=== PATIENT | female | born 1990 | race Caucasian/White ===

== ENCOUNTER 2016-10-13 03:38 | Inpatient (IN) | payer OTHER ==
[~2016-10-13] VITALS: Ht 177.8 cm; Wt 209.5 kg
[~2016-10-13 03:38] MED LIST: BACTRIM,SEPT1 TABLET PO; CARAFATE100 MG/ML PO; INDOCIN25 MG PO; PERCOCET 7.51 TABLET PO; RANITIDINE HCL150 M1 PO; SYNTHROID25 MCG PO; VALIUM5 MG PO
[2016-10-13 05:12] LABS: CHLORIDE 104 mEq/L (99-109); POTASSIUM 4.1 mEq/L (3.7-5.4); SODIUM 142 mEq/L (136-147)
[2016-10-13 05:14] LABS: GLUCOSE 317 mg/dL (70-99)
[2016-10-13 05:16] LABS: ANION GAP 11 MEQ/L (2-14); TOTAL BILIRUBIN 0.6 mg/dL (0.0-1.0)
[2016-10-13 05:18] LABS: ALKALINE PHOSPHATASE 98 IU/L (3-129); GFR ESTIMATE (CALCULATED) > 59 mL/min/
[2016-10-13 05:19] LABS: UREA NITROGEN (BUN) 7 mg/dL (9-23)
[2016-10-13 05:19] LABS: D-DIMER ELISA < 150.00 ng/mLDDU (<230)
[2016-10-13 05:20] LABS: TROP-I INTERPRETATION NEGATIVE; TROPONIN-I < 0.01 ng/mL (0.0-0.30)
[2016-10-13 05:24] LABS: BASOPHIL COUNT 0.1 K/uL (0-0.1); EOSINOPHIL (%) 1.8 % (0-5); EOSINOPHIL COUNT 0.2 K/uL (0-0.3); HEMATOCRIT 39.9 % (36.0-46.0); IMMATURE GRANULOCYTE (%) 1.7 % (0.0-0.7); IMMATURE GRANULOCYTE COUNT 0.2 K/uL; INSTRUMENT ABS NEUTROPHIL CT 6.8 K/uL; LYMPHOCYTE COUNT 1.5 K/uL (1.0-2.8); MCH 24.8 PG (29.0-34.0); MCHC 31.1 G/DL (30.0-36.0); MCV 79.8 FL (83-99); MONOCYTE (%) 8.2 % (3-12); MONOCYTE COUNT 0.8 K/uL (0-0.8); NEUTROPHIL (%) 72.2 % (45-76); NEUTROPHIL COUNT 6.8 K/uL (1.8-6.4); RBC DIS.WIDTH-CV 14.3 % (11.8-14.6); RBC DIS.WIDTH-SD 40.9 % (39-53); WHITE BLOOD COUNT 9.5 K/uL (4.1-10.2)
[2016-10-13 05:27] LABS: QUANTITATIVE HCG < 4.0 MIU/ML
[2016-10-13 06:00] LABS: ADD MIUA? YES; BILIRUBIN NEGATIVE; BLOOD NEGATIVE; COLOR YELLOW ((YELLOW)); GLUCOSE (STRIP) >=500; KETONES 5; LEUKOCYTES TRACE; NITRITE NEGATIVE; PROTEIN (STRIP) NEGATIVE; SPECIFIC GRAVITY 1.023 (1.000-1.030)
[2016-10-13 06:09] LABS: BACTERIA RARE /HPF; BUDDING YEAST 1+; EPITHELIAL CELLS 3+ /HPF; MUCUS TRACE /LPF; UCUL ADDED? NO; WHITE BLOOD CELLS 0-5 /HPF (0-5)
[2016-10-13 06:42] LABS: PLAT.SUFFICIENCY ADEQUATE; PLATELET CLUMPS PRESENT - PLATELET COUNT APPEARS ADQ.; PLATELET COUNT UNABLE TO REPORT K/uL (156-360)
[2016-10-13] MEDS ORDERED: OXYMORPHONE HCL30 MG PO (07:49)
[2016-10-13] MEDS ORDERED: METFORMIN HCL500 MG PO (07:55)
[2016-10-13] MEDS ORDERED: GLIPIZIDE5 MG PO (07:55)
[2016-10-13] MEDS ORDERED: TYLENOL EXTRA500 MG PO (07:56)
[2016-10-13] MEDS ORDERED: MOTRIN800 MG PO (07:56)
[2016-10-13] MEDS ORDERED: OPANA IR10 MG PO (07:57)
[2016-10-13] MEDS ORDERED: PRILOSEC20 MG PO (07:58)
[2016-10-13] MEDS ORDERED: GABAPENTIN600 MG PO (08:42)
[2016-10-13] MEDS ORDERED: PROAIR HFA8.5 GM IH (08:42)
[2016-10-13] MEDS ORDERED: KLONOPIN0.5 M1 PO (08:43)
[2016-10-13 12:31] LABS: POINT-OF-CARE METER ID UU13113725
[2016-10-13 12:39] VITALS: BP 133/89
[2016-10-13 13:26] LABS: TROP-I INTERPRETATION NEGATIVE; TROPONIN-I < 0.01 ng/mL (0.0-0.30)
[2016-10-13 16:19] VITALS: BP 112/59
[2016-10-13 16:41] LABS: POINT-OF-CARE METER ID UU13113725
[2016-10-13 21:08] LABS: POINT-OF-CARE METER ID UU13113725
[2016-10-13 21:33] LABS: TROP-I INTERPRETATION NEGATIVE; TROPONIN-I < 0.01 ng/mL (0.0-0.30)
[2016-10-13 22:54] VITALS: BP 131/58
[2016-10-14] VITALS (7 sets, daily range): BP systolic 116–144; BP diastolic 59–89
[2016-10-14 06:03] LABS: MCH 25.3 PG (29.0-34.0); MCHC 30.6 G/DL (30.0-36.0); MCV 82.8 FL (83-99); MEAN PLAT.VOLUME 10.2 uM^3 (9.5-12.4); PLATELET COUNT 233 K/uL (156-360); RBC DIS.WIDTH-CV 14.5 % (11.8-14.6); RBC DIS.WIDTH-SD 43.8 % (39-53); RED BLOOD COUNT 4.35 M/uL (3.80-5.20); WHITE BLOOD COUNT 6.8 K/uL (4.1-10.2)
[2016-10-14 06:05] LABS: POINT-OF-CARE METER ID UU13113725
[2016-10-14 06:25] LABS: ANION GAP 9 MEQ/L (2-14); CHLORIDE 106 MEQ/L (99-109); GFR ESTIMATE (CALCULATED) > 59 mL/min/; SAMPLE HEMOLYSIS CHECK 0; SAMPLE ICTERIC CHECK 0; SAMPLE LIPEMIA CHECK 0; SODIUM 143 MEQ/L (136-147); UREA NITROGEN (BUN) 4 mg/dL (9-23)
[2016-10-14 06:40] LABS: GLUCOSE 152 mg/dL (70-99)
[2016-10-14 11:46] LABS: POINT-OF-CARE METER ID UU13113725
[2016-10-14 16:59] LABS: POINT-OF-CARE METER ID UU13113725
[2016-10-14 21:22] LABS: POINT-OF-CARE METER ID UU13113725
[2016-10-15 03:05] VITALS: BP 118/57
[2016-10-15 05:52] LABS: POINT-OF-CARE METER ID UU13113725
[2016-10-15 08:21] VITALS: BP 121/59
[2016-10-15 10:16] LABS: MCH 24.2 PG (29.0-34.0); MCHC 29.5 G/DL (30.0-36.0); MCV 82.1 FL (83-99); MEAN PLAT.VOLUME 9.9 uM^3 (9.5-12.4); PLATELET COUNT 257 K/uL (156-360); RBC DIS.WIDTH-CV 14.5 % (11.8-14.6); RBC DIS.WIDTH-SD 42.9 % (39-53); RED BLOOD COUNT 4.63 M/uL (3.80-5.20); WHITE BLOOD COUNT 4.9 K/uL (4.1-10.2)
[2016-10-15 10:51] LABS: ANION GAP 8 MEQ/L (2-14); CHLORIDE 103 MEQ/L (99-109); GFR ESTIMATE (CALCULATED) > 59 mL/min/; GLUCOSE 229 mg/dL (70-99); POTASSIUM 4.4 MEQ/L (3.7-5.4); SAMPLE HEMOLYSIS CHECK 0; SAMPLE ICTERIC CHECK 0; SAMPLE LIPEMIA CHECK 0; SODIUM 141 MEQ/L (136-147); UREA NITROGEN (BUN) 3 mg/dL (9-23)
[2016-10-15 11:00] VITALS: BP 121/57
[2016-10-15 11:56] LABS: POINT-OF-CARE METER ID UU13113725
[2016-10-15 15:00] VITALS: BP 119/55
[2016-10-15 19:28] VITALS: BP 172/81
[2016-10-15 22:23] LABS: POINT-OF-CARE METER ID UU13113725
[2016-10-16 00:23] VITALS: BP 168/72
[2016-10-16 06:19] LABS: POINT-OF-CARE METER ID UU13113725
[2016-10-16 06:35] LABS: HEMATOCRIT 33.8 % (36.0-46.0); MCH 25.7 PG (29.0-34.0); MCHC 31.1 G/DL (30.0-36.0); MCV 82.6 FL (83-99); MEAN PLAT.VOLUME 9.9 uM^3 (9.5-12.4); PLATELET COUNT 215 K/uL (156-360); RBC DIS.WIDTH-CV 14.6 % (11.8-14.6); RBC DIS.WIDTH-SD 43.7 % (39-53); RED BLOOD COUNT 4.09 M/uL (3.80-5.20); WHITE BLOOD COUNT 5.1 K/uL (4.1-10.2)
[2016-10-16 06:54] LABS: ANION GAP 10 MEQ/L (2-14); CHLORIDE 105 MEQ/L (99-109); GFR ESTIMATE (CALCULATED) > 59 mL/min/; GLUCOSE 186 mg/dL (70-99); POTASSIUM 3.8 MEQ/L (3.7-5.4); SAMPLE HEMOLYSIS CHECK 0; SAMPLE ICTERIC CHECK 0; SAMPLE LIPEMIA CHECK 0; SODIUM 142 MEQ/L (136-147); UREA NITROGEN (BUN) 3 mg/dL (9-23)
[2016-10-16 07:10] LABS: Estimated Average Glucose 220 mg/dL (70-123); HEMOGLOBIN A1c (GLYCOHEMOGLOB) 9.3 % HGB (Below 5.7)
[2016-10-16 08:52] VITALS: BP 113/55
[2016-10-16 11:15] VITALS: BP 141/96
[2016-10-16 11:24] LABS: POINT-OF-CARE METER ID UU13113725
[2016-10-16] MEDS ORDERED: MUCINEX600 MG PO (11:31)
[2016-10-16] MEDS ORDERED: CEFDINIR300 MG PO (11:31)
[2016-10-16] MEDS ORDERED: METOPROLOL SUCC25 MG PO (11:33)
[2016-10-16] MEDS ORDERED: METOPROLOL SUCC50 MG PO (11:35)
== END 2016-10-16 14:15 | disposition home or self-care (01) | DRG 194 ==
LOC: EME 03:38 → 5EAST 07:51 → EDOF 07:51 → CANRESERV 07:52 → ENRESERV 07:52 → EDOF 08:52 → ENRESERV 09:03 → 5EAST 09:32 → ENPENDDIS 10-16 → 5EAST 10-16 14:15
PROVIDERS: Emergency Medicine; Internal Medicine; Physician Assistant
DX: J18.9 Pneumonia, unspecified organism (principal); Z68.44 Body mass index [BMI] 60.0-69.9, adult; J45.990 Exercise induced bronchospasm; E03.9 Hypothyroidism, unspecified; E11.9 Type 2 diabetes mellitus without complications; G89.29 Other chronic pain; I10 Essential (primary) hypertension; R00.0 Tachycardia, unspecified; Z74.09 Other reduced mobility; K59.00 Constipation, unspecified; M54.9 Dorsalgia, unspecified; E66.01 Morbid (severe) obesity due to excess calories; Z88.5 Allergy status to narcotic agent; Z79.84 Long term (current) use of oral hypoglycemic drugs
CPT/HCPCS: 36415; 71020; 71250; 80048; 80053; 81003; 82948; 83036; 83605; 84484; 84702; 85025; 85025 91; 85027; 85379; 85613 90; 85730 GA; 87040; 87070; 87205; 93005; 94640; 94640 76; 99202; 99281; 99285; J0456; J0692; J0696; J1650; J1815; J2405; J7030; J7050

== ENCOUNTER → 2016-12-23 | Outpatient (CLI) | payer OTHER ==
[~2016-12-23] MED LIST changes: +CEFDINIR300 MG PO; +GABAPENTIN600 MG PO; +GLIPIZIDE5 MG PO; +KLONOPIN0.5 M1 PO; +METFORMIN HCL500 MG PO; +METOPROLOL SUCC25 MG PO; +METOPROLOL SUCC50 MG PO; +MOTRIN800 MG PO; +MUCINEX600 MG PO; +OPANA IR10 MG PO; +OXYMORPHONE HCL30 MG PO; +PRILOSEC20 MG PO; +PROAIR HFA8.5 GM IH; +TYLENOL EXTRA500 MG PO
== END | disposition home or self-care (01) ==
LOC: RAD 14:54
DX: K52.9 Noninfective gastroenteritis and colitis, unspecified (principal); K59.1 Functional diarrhea; R10.32 Left lower quadrant pain; R11.0 Nausea
CPT/HCPCS: 74177

== ENCOUNTER → 2017-05-22 | Outpatient (CLI) | payer OTHER | END | disposition home or self-care (01) | LOC: NUC 07:18 | DX: K21.9 Gastro-esophageal reflux disease without esophagitis (principal) | CPT/HCPCS: 78227; A9537; J2805 ==

== ENCOUNTER 2017-06-07 16:25 | Emergency (ER) | payer OTHER ==
[~2017-06-07] VITALS: Ht 177.8 cm; Wt 204.5 kg
[2017-06-07 16:54] LABS: HEMATOCRIT 45.5 % (36.0-46.0); HEMOGLOBIN 14.6 G/DL (11.9-15.5); MCH 24.7 PG (29.0-34.0); MCHC 32.1 G/DL (30.0-36.0); MCV 76.9 FL (83-99); PLATELET COUNT 306 K/uL (156-360); RBC DIS.WIDTH-CV 14.9 % (11.8-14.6); RBC DIS.WIDTH-SD 40.6 % (39-53); RED BLOOD COUNT 5.92 M/uL (3.80-5.20); WHITE BLOOD COUNT 10.3 K/uL (4.1-10.2)
[2017-06-07 17:19] LABS: ALBUMIN 4.5 G/DL (3.2-4.8); CHLORIDE 100 MEQ/L (99-109); POTASSIUM 4.3 MEQ/L (3.7-5.4); SODIUM 136 MEQ/L (136-147); TOTAL BILIRUBIN 0.8 MG/DL (0.0-1.0)
[2017-06-07 17:30] LABS: QUANTITATIVE HCG < 4.0 MIU/ML
[2017-06-07 17:32] LABS: ALKALINE PHOSPHATASE 92 IU/L (3-129); ALT (GPT) 38 IU/L (3-49); AST (GOT) 55 IU/L (2-34); CREATININE 0.5 MG/DL (0.6-1.3); GFR ESTIMATE (CALCULATED) > 59 mL/min/; GLUCOSE 441 mg/dL (70-99); LIPASE 17 U/L (1.0-51.0); TOTAL PROTEIN 7.6 G/DL (6.4-8.3); UREA NITROGEN (BUN) 9 mg/dL (9-23)
[2017-06-07 19:28] LABS: APPEARANCE SL.HAZY ((CLEAR)); BILIRUBIN NEGATIVE; BLOOD NEGATIVE; COLOR YELLOW ((YELLOW)); GLUCOSE (STRIP) >=500; KETONES 80; LEUKOCYTES NEGATIVE; NITRITE NEGATIVE; PROTEIN (STRIP) 100; SPECIFIC GRAVITY 1.039 (1.000-1.030); UROBILINOGEN 0.2 MG/DL (0.2-1.0)
[2017-06-07 19:30] LABS: BACTERIA RARE /HPF; EPITHELIAL CELLS RARE /HPF; MUCUS TRACE /LPF; RED BLOOD CELLS 0-5 /HPF (0-5); UCUL ADDED? NO; WHITE BLOOD CELLS 0-5 /HPF (0-5)
[2017-06-07] MEDS ORDERED: ZOFRAN ODT4 MG PO (21:04)
[2017-06-07] MEDS ORDERED: CARAFATE1 GM PO (21:04)
[2017-06-07] MEDS ORDERED: ROXICODONE5 MG PO (21:08)
[2017-06-07 21:23] VITALS: BP 148/98
== END 2017-06-07 21:23 | disposition home or self-care (01) ==
LOC: EME 16:25
PROVIDERS: Nurse Practitioner Acute Care
DX: K29.70 Gastritis, unspecified, without bleeding (principal); E11.65 Type 2 diabetes mellitus with hyperglycemia; K52.9 Noninfective gastroenteritis and colitis, unspecified; E86.0 Dehydration; T38.3X6A Underdosing of insulin and oral hypoglycemic [antidiabetic] drugs, initial encounter; Z91.128 Patient's intentional underdosing of medication regimen for other reason; Z79.84 Long term (current) use of oral hypoglycemic drugs; E66.9 Obesity, unspecified; Z68.44 Body mass index [BMI] 60.0-69.9, adult; J45.909 Unspecified asthma, uncomplicated; E03.9 Hypothyroidism, unspecified; Z88.5 Allergy status to narcotic agent; Z88.0 Allergy status to penicillin
CPT/HCPCS: 74177; 76705; 80053; 81003; 82948; 83690; 84702; 85027; 99281; 99285; J2405; J2765; J3010; J7030

== ENCOUNTER → 2017-08-28 | Outpatient (CLI) | payer OTHER ==
[~2017-08-28] VITALS: Ht 177.8 cm; Wt 181.4 kg
[~2017-08-28] MED LIST changes: +BENTYL10 MG PO; +CARAFATE1 GM PO; +KADIAN30 MG PO; +MORPHINE SULFAT15 MG PO; -OXYMORPHONE HCL30 MG PO; +ROXICODONE5 MG PO; +ZANTAC150 MG PO; +ZOFRAN ODT4 MG PO; +ZOFRAN4 MG PO
== END | disposition home or self-care (01) ==
LOC: AMB 12:00
PROVIDERS: Internal Medicine Gastroenterology
DX: K29.50 Unspecified chronic gastritis without bleeding (principal); K62.1 Rectal polyp; K21.9 Gastro-esophageal reflux disease without esophagitis; K62.5 Hemorrhage of anus and rectum; R19.7 Diarrhea, unspecified; K64.8 Other hemorrhoids; J45.909 Unspecified asthma, uncomplicated; E11.65 Type 2 diabetes mellitus with hyperglycemia; I10 Essential (primary) hypertension; E78.1 Pure hyperglyceridemia; E03.9 Hypothyroidism, unspecified; E66.01 Morbid (severe) obesity due to excess calories; Z68.44 Body mass index [BMI] 60.0-69.9, adult; Z88.0 Allergy status to penicillin; Z88.1 Allergy status to other antibiotic agents; Z88.5 Allergy status to narcotic agent
CPT/HCPCS: 82948; 88305; 88342 TC; 93005; J2250